=== PATIENT | female | born 1945 | race Caucasian/White ===

== ENCOUNTER 2016-08-15 04:44 | Emergency (ER) | payer OTHER ==
[~2016-08-15] VITALS: Ht 157.5 cm; Wt 102.3 kg
[~2016-08-15 04:44] MED LIST: AMLO5TAB66 PO; ASPI-1093 PO; ATOR20TA86 PO; BUPR100T4 PO; CALC500T62 PO; IBUP-2070 PO; NAPR250T2 PO; TRAZ-147 PO
[2016-08-15 05:02] LABS: GLUCOSE,POINT OF CARE 138 MG/DL (70-110)
[2016-08-15] MEDS ORDERED: MORPHINE SULFATE 4 MG/ML SYRINGE IM ONE (08:15)
[2016-08-15] MEDS ORDERED: ONDANSETRON HCL 4 MG/2 ML VIAL IM ONE (08:15)
[2016-08-15 08:17] LABS: BASOPHILS % (AUTO) 2.2 % (0.0-2.0); EOSINOPHILS % (AUTO) 2.8 % (1.0-6.0); HEMATOCRIT 45.3 % (36-46); HEMOGLOBIN 14.3 g/dL (12.0-16.0); LYMPHOCYTES # (AUTO) 2.2 K/uL (1.0-4.8); LYMPHOCYTES % (AUTO) 22.6 % (22.0-44.0); MEAN CORPUSCULAR HEMOGLOBIN 27.5 pg (26.0-34.0); MEAN CORPUSCULAR HGB CONC 31.6 G/dL (31.0-37.0); MEAN CORPUSCULAR VOLUME 87 fL (80-100); MONOCYTES # (AUTO) 0.7 K/uL (0.1-1.0); MONOCYTES % (AUTO) 7.2 % (2.0-9.0); NEUTROPHILS # (AUTO) 6.4 K/uL (1.8-7.7); NEUTROPHILS % (AUTO) 65.2 % (40.0-70.0); PLATELET COUNT (AUTO) 231 K/uL (150-450); RED BLOOD CELL COUNT(AUTO) 5.22 MIL/uL (4.00-5.20); RED CELL DISTRIBUTION WIDTH 15.5 % (11.5-14.5); WHITE BLOOD COUNT (AUTO) 9.8 K/uL (4.5-11.0)
[2016-08-15 08:54] LABS: CALCIUM, TOTAL 8.8 mg/dL (8.8-10.5); CREATININE 1.01 mg/dL (0.60-1.30); POTASSIUM 3.5 mmol/L (3.5-5.1)
[2016-08-15 09:01] LABS: ALBUMIN 3.7 g/dL (3.4-5.0); BILIRUBIN,TOTAL 0.4 mg/dL (0.1-1.0); TOTAL PROTEIN, SERUM 7.3 g/dL (6.4-8.2)
[2016-08-15] MEDS ORDERED: HYDROmorphone 2 MG/ML SYRINGE IM ONE (09:15)
[2016-08-15 10:19] VITALS: BP 130/69
== END 2016-08-15 10:46 | disposition home or self-care (01) ==
LOC: EMS 04:46
DX: R51 Headache (principal); F32.9 Major depressive disorder, single episode, unspecified; E78.00 Pure hypercholesterolemia, unspecified; I10 Essential (primary) hypertension; E11.9 Type 2 diabetes mellitus without complications; Z79.82 Long term (current) use of aspirin
CPT/HCPCS: 36415; 70450; 80053; 82962; 85025; 93005; 96372; 99285; J1170; J2270; J2405

== ENCOUNTER 2017-03-25 14:47 | Emergency (ER) | payer OTHER ==
[~2017-03-25] VITALS: Ht 162.6 cm; Wt 118.0 kg
[~2017-03-25 14:47] MED LIST changes: -ASPI-1093 PO; +ASPI-1182 PO; -BUPR100T4 PO; -CALC500T62 PO; -IBUP-2070 PO; +NAPR-923 PO; -NAPR250T2 PO; -TRAZ-147 PO
[2017-03-25 15:13] LABS: GLUCOSE,POINT OF CARE 160 MG/DL (70-110)
[2017-03-25] MEDS ORDERED: CITA20TA9 PO (15:17)
[2017-03-25] MEDS ORDERED: BUSP5TAB20 PO (15:17)
[2017-03-25] MEDS ORDERED: RISP.5 PO (15:17)
[2017-03-25] MEDS ORDERED: DULO60CA44 PO (15:17)
[2017-03-25 16:48] LABS: BASOPHILS % (AUTO) 0.4 % (0.0-2.0); EOSINOPHILS % (AUTO) 1.7 % (1.0-6.0); HEMATOCRIT 42.8 % (36-46); HEMOGLOBIN 14.5 g/dL (12.0-16.0); LYMPHOCYTES # (AUTO) 1.4 K/uL (1.0-4.8); LYMPHOCYTES % (AUTO) 21.2 % (22.0-44.0); MEAN CORPUSCULAR HGB CONC 33.8 G/dL (31.0-37.0); MEAN CORPUSCULAR VOLUME 86 fL (80-100); MONOCYTES # (AUTO) 0.5 K/uL (0.1-1.0); MONOCYTES % (AUTO) 7.5 % (2.0-9.0); NEUTROPHILS # (AUTO) 4.7 K/uL (1.8-7.7); NEUTROPHILS % (AUTO) 69.2 % (40.0-70.0); PLATELET COUNT (AUTO) 250 K/uL (150-450); RED BLOOD CELL COUNT(AUTO) 4.99 MIL/uL (4.00-5.20)
[2017-03-25 17:17] LABS: ANION GAP 10 mmol/L (8-16); CALCIUM, TOTAL 8.7 mg/dL (8.8-10.5); CARBON DIOXIDE 28 mmol/L (22-29); CHLORIDE 102 mmol/L (98-107); CREATININE 1.07 mg/dL (0.60-1.30); GLOMERULAR FILTR. RATE CALC 50 mL/min (>60); GLUCOSE,RANDOM 148 mg/dL (70-110); POTASSIUM 3.4 mmol/L (3.5-5.1); SODIUM SERUM 140 mmol/L (136-145); UREA NITROGEN, BLOOD 16 mg/dL (7-18)
[2017-03-25 17:23] LABS: ALANINE AMINOTRANSFERASE 19 U/L (12-78); ALBUMIN 3.2 g/dL (3.4-5.0); ALKALINE PHOSPHATASE 103 U/L (46-116); ASPARTATE AMINOTRANSFERASE 12 U/L (15-37); BILIRUBIN,TOTAL 0.3 mg/dL (0.1-1.0); TOTAL PROTEIN, SERUM 7.2 g/dL (6.4-8.2)
[2017-03-25 17:29] LABS: AMPHET/METH SCREEN,URINE NEGATIVE (NEGATIVE); BARBITURATE SCREEN, URINE NEGATIVE (NEGATIVE); BENZODIAZEPINES SCREEN,URINE NEGATIVE (NEGATIVE); CANNABINOID SCREEN,URINE NEGATIVE (NEGATIVE); COCAINE SCREEN,URINE NEGATIVE (NEGATIVE); METHADONE SCREEN, URINE NEGATIVE (NEGATIVE); OPIATE SCREEN,URINE NEGATIVE (NEGATIVE)
[2017-03-25 17:31] LABS: PHENCYCLIDINE SCREEN,URINE NEGATIVE (NEGATIVE)
[2017-03-25 18:04] VITALS: BP 150/89
== END 2017-03-25 18:06 | disposition home or self-care (01) ==
LOC: EMS 14:48
DX: F32.9 Major depressive disorder, single episode, unspecified (principal); F41.9 Anxiety disorder, unspecified; E11.9 Type 2 diabetes mellitus without complications; E78.00 Pure hypercholesterolemia, unspecified; I10 Essential (primary) hypertension; Z79.82 Long term (current) use of aspirin
CPT/HCPCS: 36415; 80053; 80307; 82962; 85025; 99284; G0480

== ENCOUNTER 2017-04-12 06:43 | Emergency (ER) | payer OTHER ==
[~2017-04-12] VITALS: Ht 162.6 cm; Wt 109.1 kg
[~2017-04-12 06:43] MED LIST changes: +BUSP5TAB20 PO; +CITA20TA9 PO; +DULO60CA44 PO; +RISP.5 PO
[2017-04-12 07:50] LABS: BASOPHILS # (AUTO) 0.02 K/uL (0.00-0.20); BASOPHILS % (AUTO) 0.4 % (0.0-2.0); EOSINOPHILS # (AUTO) 0.03 K/uL (0.00-0.70); EOSINOPHILS % (AUTO) 0.48 % (1.0-6.0); HEMATOCRIT 42.4 % (36-46); LYMPHOCYTES # (AUTO) 0.8 K/uL (1.0-4.8); LYMPHOCYTES % (AUTO) 14.8 % (22.0-44.0); MEAN CORPUSCULAR HEMOGLOBIN 28.4 pg (26.0-34.0); MEAN CORPUSCULAR VOLUME 86 fL (80-100); MONOCYTES # (AUTO) 0.4 K/uL (0.1-1.0); MONOCYTES % (AUTO) 6.2 % (2.0-9.0); NEUTROPHILS # (AUTO) 4.5 K/uL (1.8-7.7); NEUTROPHILS % (AUTO) 78.1 % (40.0-70.0); PLATELET COUNT (AUTO) 182 K/uL (150-450); RED BLOOD CELL COUNT(AUTO) 4.91 MIL/uL (4.00-5.20); RED CELL DISTRIBUTION WIDTH 15.1 % (11.5-14.5)
[2017-04-12 08:00] LABS: PROTHROMBIN TIME 10.5 SEC (9.4-11.6)
[2017-04-12 08:03] LABS: ANION GAP 8 mmol/L (8-16); CALCIUM, TOTAL 8.2 mg/dL (8.8-10.5); CARBON DIOXIDE 29 mmol/L (22-29); CHLORIDE 98 mmol/L (98-107); CREATININE 0.84 mg/dL (0.60-1.30); GLOMERULAR FILTR. RATE CALC > 60 mL/min (>60); GLUCOSE,RANDOM 188 mg/dL (70-110); POTASSIUM 3.4 mmol/L (3.5-5.1); SODIUM SERUM 135 mmol/L (136-145); UREA NITROGEN, BLOOD 16 mg/dL (7-18)
[2017-04-12 08:17] LABS: INFLUENZA TYPE A POSITIVE FOR TYPE A (NEGATIVE); INFLUENZA TYPE B NEGATIVE FOR TYPE B (NEGATIVE)
[2017-04-12 08:17] LABS: B-TYPE NATRIURETIC PEPTIDE 8 pg/mL (0-100)
[2017-04-12] MEDS ORDERED: IPRATROPIUM BROMIDE 0.5 MG/2.5 ML NEB SOLUTION NEB ONE ×2 (08:30→09:45)
[2017-04-12] MEDS ORDERED: ALBUTEROL SULFATE 2.5 MG/0.5 ML NEB SOLUTION NEB ONE ×2 (08:30→09:45)
[2017-04-12 08:33] LABS: ALANINE AMINOTRANSFERASE 26 U/L (12-78); ALBUMIN 3.2 g/dL (3.4-5.0); ALKALINE PHOSPHATASE 103 U/L (46-116); ASPARTATE AMINOTRANSFERASE 23 U/L (15-37); BILIRUBIN,TOTAL 0.3 mg/dL (0.1-1.0); CREATINE KINASE MB 0.9 ng/mL (0-5); CREATINE KINASE, TOTAL 151 U/L (26-192); TOTAL PROTEIN, SERUM 7.5 g/dL (6.4-8.2)
[2017-04-12] MEDS ORDERED: ONDANSETRON HCL 4 MG TABLET PO ONE (09:15)
[2017-04-12] MEDS ORDERED: OSELTAMIVIR PHOSPHATE 75 MG CAPSULE PO ONE (09:30)
[2017-04-12] MEDS ORDERED: ALBUTEROL SULFATE HFA 90 MCG/PUFF 8 GM INHALER IH ONE (13:30)
[2017-04-12] MEDS ORDERED: AMLO-512 PO (13:34)
[2017-04-12] MEDS ORDERED: NAPR-58 PO (13:34)
[2017-04-12 14:04] VITALS: BP 125/72
== END 2017-04-12 14:06 | disposition home or self-care (01) ==
LOC: EMS 06:44
DX: J09.X2 Influenza due to identified novel influenza A virus with other respiratory manifestations (principal); I10 Essential (primary) hypertension; E11.9 Type 2 diabetes mellitus without complications; E78.00 Pure hypercholesterolemia, unspecified
CPT/HCPCS: 36415; 71045; 80053; 82550; 82553; 83880; 84484; 85025; 85610; 85730; 87804; 93005; 94640; 99285; Q0162; J3535

== ENCOUNTER 2017-06-19 02:09 | Emergency (ER) | payer OTHER ==
[~2017-06-19] VITALS: Ht 160 cm; Wt 111.4 kg
[~2017-06-19 02:09] MED LIST changes: +AMLO-512 PO; -AMLO5TAB66 PO; +NAPR-58 PO; -NAPR-923 PO
[2017-06-19] MEDS ORDERED: ACETAMINOPHEN 325 MG TABLET PO ONE (03:30)
[2017-06-19 03:47] LABS: BASOPHILS % (AUTO) 0.7 % (0.0-2.0); EOSINOPHILS % (AUTO) 3.7 % (1.0-6.0); HEMATOCRIT 39.9 % (36-46); HEMOGLOBIN 13.3 g/dL (12.0-16.0); LYMPHOCYTES # (AUTO) 2.2 K/uL (1.0-4.8); LYMPHOCYTES % (AUTO) 21.6 % (22.0-44.0); MEAN CORPUSCULAR HEMOGLOBIN 28.4 pg (26.0-34.0); MEAN CORPUSCULAR HGB CONC 33.4 G/dL (31.0-37.0); MEAN CORPUSCULAR VOLUME 85 fL (80-100); MONOCYTES # (AUTO) 0.9 K/uL (0.1-1.0); MONOCYTES % (AUTO) 8.3 % (2.0-9.0); NEUTROPHILS # (AUTO) 6.8 K/uL (1.8-7.7); NEUTROPHILS % (AUTO) 65.7 % (40.0-70.0); PLATELET COUNT (AUTO) 248 K/uL (150-450); RED BLOOD CELL COUNT(AUTO) 4.68 MIL/uL (4.00-5.20); RED CELL DISTRIBUTION WIDTH 15.5 % (11.5-14.5)
[2017-06-19 03:52] LABS: CALCIUM, TOTAL 9.6 mg/dL (8.8-10.5); CREATININE 1.18 mg/dL (0.60-1.30); POTASSIUM 3.3 mmol/L (3.5-5.1)
[2017-06-19 03:57] LABS: ALBUMIN 3.2 g/dL (3.4-5.0); BILIRUBIN,TOTAL 0.3 mg/dL (0.1-1.0); TOTAL PROTEIN, SERUM 7.3 g/dL (6.4-8.2)
[2017-06-19 06:10] VITALS: BP 143/69
[2017-06-19] MEDS ORDERED: KETOROLAC TROMETHAMINE 30 MG/ML VIAL IM ONE (06:15)
== END 2017-06-19 06:24 | disposition home or self-care (01) ==
LOC: EMS 02:10
DX: N64.4 Mastodynia (principal); E11.9 Type 2 diabetes mellitus without complications; I10 Essential (primary) hypertension; E78.00 Pure hypercholesterolemia, unspecified
CPT/HCPCS: 36415; 71045; 80053; 84484; 85025; 93005; 96372; 99285; J1885

== ENCOUNTER 2018-01-19 13:27 | Emergency (ER) | payer MEDICARE, MEDICAID ==
[~2018-01-19] VITALS: Ht 157.5 cm; Wt 104.5 kg
[~2018-01-19 13:27] MED LIST changes: -ATOR20TA86 PO; +CITA-106 PO; -CITA20TA9 PO; -NAPR-58 PO
[2018-01-19 16:42] LABS: BASOPHILS % (AUTO) 2.5 % (0.0-2.0); EOSINOPHILS % (AUTO) 1.4 % (1.0-6.0); HEMATOCRIT 44.8 % (36-46); HEMOGLOBIN 14.9 g/dL (12.0-16.0); LYMPHOCYTES # (AUTO) 2.2 K/uL (1.0-4.8); LYMPHOCYTES % (AUTO) 18.8 % (22.0-44.0); MEAN CORPUSCULAR HEMOGLOBIN 28.6 pg (26.0-34.0); MEAN CORPUSCULAR HGB CONC 33.2 G/dL (31.0-37.0); MEAN CORPUSCULAR VOLUME 86 fL (80-100); MONOCYTES % (AUTO) 8.1 % (2.0-9.0); NEUTROPHILS # (AUTO) 8.2 K/uL (1.8-7.7); NEUTROPHILS % (AUTO) 69.2 % (40.0-70.0); PLATELET COUNT (AUTO) 296 K/uL (150-450); RED BLOOD CELL COUNT(AUTO) 5.21 MIL/uL (4.00-5.20); RED CELL DISTRIBUTION WIDTH 14.8 % (11.5-14.5)
[2018-01-19 16:50] LABS: ANION GAP 8 mmol/L (8-16); CALCIUM, TOTAL 9.1 mg/dL (8.8-10.5); CARBON DIOXIDE 29 mmol/L (22-29); CHLORIDE 102 mmol/L (98-107); CREATININE 1.19 mg/dL (0.60-1.30); GLOMERULAR FILTR. RATE CALC 44 mL/min (>60); GLUCOSE,RANDOM 116 mg/dL (70-110); POTASSIUM 3.7 mmol/L (3.5-5.1); SODIUM SERUM 139 mmol/L (136-145); UREA NITROGEN, BLOOD 19 mg/dL (7-18)
[2018-01-19 16:56] LABS: ALANINE AMINOTRANSFERASE 20 U/L (12-78); ALBUMIN 3.7 g/dL (3.4-5.0); ALKALINE PHOSPHATASE 125 U/L (46-116); ASPARTATE AMINOTRANSFERASE 11 U/L (15-37); BILIRUBIN,TOTAL 0.6 mg/dL (0.1-1.0); TOTAL PROTEIN, SERUM 8.2 g/dL (6.4-8.2)
[2018-01-19] MEDS ORDERED: LORazepam 2 MG TABLET PO ONE (19:45)
[2018-01-19 21:25] VITALS: BP 122/86
== END 2018-01-19 21:30 | disposition home or self-care (01) ==
LOC: EDUNIT# 13:27 → EMS 13:32
DX: F32.9 Major depressive disorder, single episode, unspecified (principal); F41.9 Anxiety disorder, unspecified; E11.9 Type 2 diabetes mellitus without complications; E78.00 Pure hypercholesterolemia, unspecified; I10 Essential (primary) hypertension; G89.29 Other chronic pain; Z79.82 Long term (current) use of aspirin
CPT/HCPCS: 36415; 80053; 85025; 99284; G0480

== ENCOUNTER 2018-08-05 05:07 | Emergency (ER) | payer MEDICARE, MEDICAID ==
[~2018-08-05] VITALS: Ht 157.5 cm; Wt 109.1 kg
[2018-08-05] MEDS ORDERED: IBUP-2070 PO (05:38)
[2018-08-05] MEDS ORDERED: ATOR20TA86 PO (05:38)
[2018-08-05] MEDS ORDERED: BACL10TA PO (05:38)
[2018-08-05] MEDS ORDERED: MELO-107 PO (05:38)
[2018-08-05] MEDS ORDERED: BUPR100 PO (05:40)
[2018-08-05] MEDS ORDERED: LISI-660 PO (05:40)
[2018-08-05] MEDS ORDERED: CITA-106 PO (05:40)
[2018-08-05] MEDS ORDERED: TraMADol HCL 50 MG TABLET PO ONE (06:30)
[2018-08-05] MEDS ORDERED: LORazepam 1 MG TABLET PO ONE (06:30)
[2018-08-05] MEDS ORDERED: KETOROLAC TROMETHAMINE 60 MG/2 ML VIAL IM ONE (06:30)
[2018-08-05] MEDS ORDERED: MORPHINE SULFATE 2 MG/ML SYRINGE IM ONE (07:45)
[2018-08-05 08:59] VITALS: BP 137/70
== END 2018-08-05 08:57 | disposition home or self-care (01) ==
LOC: EMS 05:09
DX: M54.42 Lumbago with sciatica, left side (principal); M51.36 Other intervertebral disc degeneration, lumbar region; E11.9 Type 2 diabetes mellitus without complications; E78.00 Pure hypercholesterolemia, unspecified; I10 Essential (primary) hypertension; F41.9 Anxiety disorder, unspecified; F32.9 Major depressive disorder, single episode, unspecified; Z79.82 Long term (current) use of aspirin; Z79.899 Other long term (current) drug therapy
CPT/HCPCS: 72131; 96372; 99284; J1885; J2270

== ENCOUNTER 2018-08-30 23:41 | Emergency (ER) | payer MEDICARE, MEDICAID ==
[~2018-08-30 23:41] MED LIST changes: +ATOR20TA86 PO; +BACL10TA PO; +BUPR100 PO; +IBUP-2070 PO; +LISI-660 PO; +MELO-107 PO
[2018-08-31] MEDS ORDERED: HYDROCODONE/ACETAMINOPHEN 5-325 MG TABLET PO ONE (00:45)
[2018-08-31 00:53] VITALS: BP 123/66
== END 2018-08-31 02:05 | disposition home or self-care (01) ==
LOC: EMS 23:41
DX: T50.901A Poisoning by unspecified drugs, medicaments and biological substances, accidental (unintentional), initial encounter (principal); M54.5 Low back pain; F41.9 Anxiety disorder, unspecified; F32.9 Major depressive disorder, single episode, unspecified; E11.9 Type 2 diabetes mellitus without complications; E78.00 Pure hypercholesterolemia, unspecified; Z79.82 Long term (current) use of aspirin; Z79.899 Other long term (current) drug therapy; I10 Essential (primary) hypertension; Y92.89 Other specified places as the place of occurrence of the external cause

== ENCOUNTER 2018-10-19 16:57 | Emergency (ER) | payer MEDICARE, MEDICAID ==
[~2018-10-19] VITALS: Ht 157.5 cm; Wt 99.1 kg
[~2018-10-19 16:57] MED LIST changes: -AMLO-512 PO; +AMLO10TA7 PO
[2018-10-19] MEDS ORDERED: MIRT15 PO (17:33)
[2018-10-19] MEDS ORDERED: HydrOXYzine PAMOATE 50 MG CAPSULE PO ONE (18:00)
[2018-10-19 18:26] LABS: GLUCOSE,POINT OF CARE 147 MG/DL (70-110)
[2018-10-19 18:48] VITALS: BP 118/77
== END 2018-10-19 18:59 | disposition home or self-care (01) ==
LOC: EMS 16:58
DX: F32.9 Major depressive disorder, single episode, unspecified (principal); F41.9 Anxiety disorder, unspecified; E11.9 Type 2 diabetes mellitus without complications; I10 Essential (primary) hypertension; E78.00 Pure hypercholesterolemia, unspecified; G89.29 Other chronic pain; Z79.82 Long term (current) use of aspirin

== ENCOUNTER 2019-11-09 20:11 | Emergency (ER) | payer OTHER ==
[~2019-11-09 20:11] MED LIST changes: +AMLO-258 PO; -AMLO10TA7 PO; +ASPI-1111 PO; -ASPI-1182 PO; -CITA-106 PO; +CITA-144 PO; -DULO60CA44 PO; -IBUP-2070 PO; -LISI-660 PO; +MIRT-89 PO; -RISP.5 PO; +RISP0.5T20 PO
== END 2019-11-09 21:53 | disposition left against medical advice (07) ==
LOC: EMS 20:11
DX: R06.02 Shortness of breath (principal); Z53.21 Procedure and treatment not carried out due to patient leaving prior to being seen by health care provider

== ENCOUNTER 2020-01-14 16:30 | Emergency (ER) | payer OTHER ==
[~2020-01-14] VITALS: Ht 157.5 cm; Wt 113.6 kg
[~2020-01-14 16:30] MED LIST changes: +BUPR-121 PO; -BUPR100 PO; -RISP0.5T20 PO; +RISP0.5T39 PO
[2020-01-14 17:39] LABS: GLUCOSE,POINT OF CARE 133 MG/DL (70-110)
[2020-01-14 17:53] LABS: BASOPHILS % (AUTO) 1.5 % (0.0-2.0); EOSINOPHILS % (AUTO) 0.3 % (1.0-6.0); HEMATOCRIT 39.3 % (36-46); HEMOGLOBIN 13.4 g/dL (12.0-16.0); LYMPHOCYTES # (AUTO) 1.3 K/uL (1.0-4.8); LYMPHOCYTES % (AUTO) 19.6 % (22.0-44.0); MEAN CORPUSCULAR VOLUME 88 fL (80-100); MONOCYTES # (AUTO) 0.5 K/uL (0.1-1.0); MONOCYTES % (AUTO) 7.7 % (2.0-9.0); NEUTROPHILS # (AUTO) 4.6 K/uL (1.8-7.7); NEUTROPHILS % (AUTO) 70.9 % (40.0-70.0); PLATELET COUNT (AUTO) 223 K/uL (150-450); RED BLOOD CELL COUNT(AUTO) 4.45 MIL/uL (4.00-5.20); RED CELL DISTRIBUTION WIDTH 14.9 % (11.5-14.5)
[2020-01-14] MEDS ORDERED: ONDANSETRON HCL 4 MG/2 ML VIAL IVP ONE (18:00)
[2020-01-14] MEDS ORDERED: FAMOTIDINE 10 MG/ML 2 ML VIAL IVP ONE (18:00)
[2020-01-14 18:05] LABS: ANION GAP 7 mmol/L (8-16); CALCIUM, TOTAL 9.6 mg/dL (8.8-10.5); CARBON DIOXIDE 31 mmol/L (22-29); CHLORIDE 107 mmol/L (98-107); CREATININE 0.83 mg/dL (0.60-1.30); GLOMERULAR FILTR. RATE CALC > 60 mL/min (>60); GLUCOSE,RANDOM 135 mg/dL (70-110); POTASSIUM 3.4 mmol/L (3.5-5.1); SODIUM SERUM 145 mmol/L (136-145); UREA NITROGEN, BLOOD 13 mg/dL (7-18)
[2020-01-14 18:10] LABS: ALANINE AMINOTRANSFERASE 19 U/L (12-78); ALKALINE PHOSPHATASE 69 U/L (46-116); ASPARTATE AMINOTRANSFERASE 16 U/L (15-37); BILIRUBIN,TOTAL 0.4 mg/dL (0.1-1.0); LIPASE 214 U/L (73-393); PROTHROMBIN TIME 10.9 SEC (9.4-11.6); TOTAL PROTEIN, SERUM 6.7 g/dL (6.4-8.2)
[2020-01-14 18:18] LABS: B-TYPE NATRIURETIC PEPTIDE 162 pg/mL (0-100)
[2020-01-14] MEDS ORDERED: METOCLOPRAMIDE HCL 5 MG/ML 2 ML VIAL IVP ONE (18:30)
[2020-01-14 18:39] LABS: COVID AG,FIA SOURCE NASOPHARYNGEAL
[2020-01-14] MEDS ORDERED: IOVERSOL 350 MG/ML 150 ML VIAL ONE (20:34)
[2020-01-14] MEDS ORDERED: SODIUM CHLORIDE 0.9% 100 ML ONE (20:34)
[2020-01-14 22:17] VITALS: BP 156/85
== END 2020-01-14 22:20 | disposition home or self-care (01) ==
LOC: EMS 16:30
DX: R11.2 Nausea with vomiting, unspecified (principal); R19.7 Diarrhea, unspecified; R79.1 Abnormal coagulation profile; F32.9 Major depressive disorder, single episode, unspecified; F41.9 Anxiety disorder, unspecified; E11.9 Type 2 diabetes mellitus without complications; E78.00 Pure hypercholesterolemia, unspecified; I10 Essential (primary) hypertension; Z90.49 Acquired absence of other specified parts of digestive tract; Z79.899 Other long term (current) drug therapy; Z20.828 Contact with and (suspected) exposure to other viral communicable diseases
CPT/HCPCS: 36415; 71045; 74177; 80053; 82962; 83690; 83880; 84484; 85025; 85610; 85730; 87426; 93005; 96374; 96375; 99285; J2405; J2765; J3490; J7050; Q9967

== ENCOUNTER 2020-04-18 14:15 | Emergency (ER) | payer OTHER ==
[~2020-04-18] VITALS: Ht 157.5 cm; Wt 95.5 kg
[2020-04-18] MEDS ORDERED: [UNRECOGNIZED DRUG - REMARK] PO (14:53)
[2020-04-18 15:44] LABS: BASOPHILS % (AUTO) 0.8 % (0.0-2.0); EOSINOPHILS % (AUTO) 1.1 % (1.0-6.0); HEMATOCRIT 42.1 % (36-46); HEMOGLOBIN 13.9 g/dL (12.0-16.0); LYMPHOCYTES # (AUTO) 1.6 K/uL (1.0-4.8); LYMPHOCYTES % (AUTO) 21.4 % (22.0-44.0); MEAN CORPUSCULAR HEMOGLOBIN 29.4 pg (26.0-34.0); MEAN CORPUSCULAR VOLUME 89 fL (80-100); MONOCYTES # (AUTO) 0.5 K/uL (0.1-1.0); MONOCYTES % (AUTO) 6.2 % (2.0-9.0); NEUTROPHILS # (AUTO) 5.3 K/uL (1.8-7.7); NEUTROPHILS % (AUTO) 70.5 % (40.0-70.0); PLATELET COUNT (AUTO) 207 K/uL (150-450); RED BLOOD CELL COUNT(AUTO) 4.73 MIL/uL (4.00-5.20); RED CELL DISTRIBUTION WIDTH 14.2 % (11.5-14.5)
[2020-04-18 16:00] LABS: ANION GAP 8 mmol/L (8-16); CALCIUM, TOTAL 9.5 mg/dL (8.8-10.5); CARBON DIOXIDE 30 mmol/L (22-29); CHLORIDE 109 mmol/L (98-107); CREATININE 0.84 mg/dL (0.60-1.30); GLOMERULAR FILTR. RATE CALC > 60 mL/min (>60); GLUCOSE,RANDOM 133 mg/dL (70-110); POTASSIUM 4.2 mmol/L (3.5-5.1); SODIUM SERUM 147 mmol/L (136-145); UREA NITROGEN, BLOOD 9 mg/dL (7-18)
[2020-04-18 16:05] LABS: ALANINE AMINOTRANSFERASE 18 U/L (12-78); ALBUMIN 3.1 g/dL (3.4-5.0); ALKALINE PHOSPHATASE 83 U/L (46-116); ASPARTATE AMINOTRANSFERASE 12 U/L (15-37); BILIRUBIN,TOTAL 0.4 mg/dL (0.1-1.0); LIPASE 69 U/L (73-393); TOTAL PROTEIN, SERUM 6.5 g/dL (6.4-8.2)
[2020-04-18] MEDS: ONDANSETRON HCL 4 MG/2 ML VIAL IVP ONE (16:49)
[2020-04-18 18:14] VITALS: BP 159/91
== END 2020-04-18 18:49 | disposition home or self-care (01) ==
LOC: EMS 14:15
DX: R11.2 Nausea with vomiting, unspecified (principal); R19.7 Diarrhea, unspecified; F41.9 Anxiety disorder, unspecified; F32.9 Major depressive disorder, single episode, unspecified; E11.9 Type 2 diabetes mellitus without complications; E78.00 Pure hypercholesterolemia, unspecified
CPT/HCPCS: 80053; 83690; 85025; 96374; 99283; J2405

== ENCOUNTER 2020-12-16 20:26 | Inpatient (IN) | payer OTHER ==
[~2020-12-16] VITALS: Ht 157.5 cm; Wt 109.6 kg
[~2020-12-16 20:26] MED LIST changes: -ASPI-1111 PO; -BACL10TA PO; +[UNRECOGNIZED DRUG - REMARK] PO
[2020-12-16 21:31] LABS: BASOPHILS % (AUTO) 0.4 % (0.0-2.0); EOSINOPHILS % (AUTO) 4.1 % (1.0-6.0); HEMATOCRIT 39.4 % (36-46); HEMOGLOBIN 12.8 g/dL (12.0-16.0); LYMPHOCYTES # (AUTO) 1.1 K/uL (1.0-4.8); LYMPHOCYTES % (AUTO) 16.3 % (22.0-44.0); MEAN CORPUSCULAR HEMOGLOBIN 29.4 pg (26.0-34.0); MEAN CORPUSCULAR HGB CONC 32.4 G/dL (31.0-37.0); MEAN CORPUSCULAR VOLUME 91 fL (80-100); MONOCYTES # (AUTO) 0.7 K/uL (0.1-1.0); MONOCYTES % (AUTO) 9.6 % (2.0-9.0); NEUTROPHILS # (AUTO) 4.9 K/uL (1.8-7.7); NEUTROPHILS % (AUTO) 69.6 % (40.0-70.0); PLATELET COUNT (AUTO) 364 K/uL (150-450); RED BLOOD CELL COUNT(AUTO) 4.35 MIL/uL (4.00-5.20); RED CELL DISTRIBUTION WIDTH 15.3 % (11.5-14.5)
[2020-12-16 21:52] LABS: CALCIUM, TOTAL 9.3 mg/dL (8.8-10.5); CREATININE 1.04 mg/dL (0.60-1.30); POTASSIUM 4.1 mmol/L (3.5-5.1)
[2020-12-16 21:57] LABS: BILIRUBIN,TOTAL 0.3 mg/dL (0.1-1.0); TOTAL PROTEIN, SERUM 7.6 g/dL (6.4-8.2)
[2020-12-16 23:19] LABS: COVID AG,FIA SOURCE NASAL SWAB
[2020-12-17] MEDS ORDERED: ACETAMINOPHEN 325 MG TABLET PO PRN ×2 (03:30→08:00)
[2020-12-17] MEDS ORDERED: ALBUTEROL SULFATE 2.5 MG/0.5 ML NEB SOLUTION NEB ONE (03:30)
[2020-12-17] MEDS ORDERED: ONDANSETRON HCL 4 MG/2 ML VIAL IVP PRN ×2 (03:30→08:00)
[2020-12-17] MEDS ORDERED: 0.9% SODIUM CHLORIDE 10 ML SYRINGE IVP PRN (03:30)
[2020-12-17] MEDS ORDERED: 0.9% SODIUM CHLORIDE 5 ML NEB SOLUTION NEB ONE (04:52)
[2020-12-17 06:53] VITALS: BP 139/62
[2020-12-17 07:32] VITALS: BP 136/66
[2020-12-17] MEDS ORDERED: MAGNESIUM HYDROXIDE SUSPENSION 30 ML UDCUP PO PRN (08:00)
[2020-12-17] MEDS: HEPARIN SODIUM,PORCINE 5,000 UNITS/ML VIAL SQ SCH ×2 (08:29→15:22)
[2020-12-17] MEDS ORDERED: FAMOTIDINE 20 MG TABLET PO SCH (09:00)
[2020-12-17] MEDS ORDERED: ASPIRIN 81 MG CHEWABLE TABLET PO SCH (09:00)
[2020-12-17 12:01] VITALS: BP 152/69
[2020-12-17 16:06] VITALS: BP 148/72
== END 2020-12-17 17:30 | disposition left against medical advice (07) | DRG 312 ==
LOC: EMS 20:29 → 5S 12-17 04:00
PROVIDERS: ADMIT Internal Medicine; ATTEND Internal Medicine
DX: I95.1 Orthostatic hypotension (principal); Z68.41 Body mass index [BMI] 40.0-44.9, adult; E66.01 Morbid (severe) obesity due to excess calories; I10 Essential (primary) hypertension; F32.A Depression, unspecified; F41.9 Anxiety disorder, unspecified; Z53.29 Procedure and treatment not carried out because of patient's decision for other reasons; R09.02 Hypoxemia; F99 Mental disorder, not otherwise specified; E78.00 Pure hypercholesterolemia, unspecified; Z90.49 Acquired absence of other specified parts of digestive tract; Z83.3 Family history of diabetes mellitus; Z80.9 Family history of malignant neoplasm, unspecified; Z20.822 Contact with and (suspected) exposure to COVID-19
CPT/HCPCS: 70450; 71045; 80053; 83880; 84443; 84484; 85025; 85379; 93005; 93306; 93970; 94640; 99291; J1644; 36415-L1; 36415-TC; J7613

== ENCOUNTER 2021-01-04 15:41 | Inpatient (IN) | payer OTHER ==
[~2021-01-04] VITALS: Ht 157.5 cm; Wt 113.0 kg
[2021-01-04] MEDS ORDERED: CITA-108 PO (16:14)
[2021-01-04] MEDS ORDERED: MIRT45TA83 PO (16:14)
[2021-01-04] MEDS ORDERED: ALBU8.5H8 IH (16:14)
[2021-01-04] MEDS ORDERED: RISP0.2515 PO (16:14)
[2021-01-04] MEDS ORDERED: BUPR200T3 PO (16:14)
[2021-01-04] MEDS ORDERED: LISI30TA4 PO (16:14)
[2021-01-04] MEDS ORDERED: CALC-789 PO (16:14)
[2021-01-04] MEDS ORDERED: BUSP10TA23 PO (16:14)
[2021-01-04] MEDS ORDERED: PROP10TA72 PO (16:14)
[2021-01-04] MEDS ORDERED: GABA-1181 PO (16:14)
[2021-01-04] MEDS ORDERED: FAMO20TA8 PO (16:14)
[2021-01-04] MEDS ORDERED: ALBUTEROL SULFATE 5 MG/ML 20 ML NEB SOLN [BULK] NEB ONE (16:15)
[2021-01-04] MEDS ORDERED: IPRATROPIUM BROMIDE 0.5 MG/2.5 ML NEB SOLUTION NEB ONE (16:15)
[2021-01-04] MEDS ORDERED: MethylPREDNISolone SOD SUCC 125 MG/2 ML VIAL IVP ONE (16:15)
[2021-01-04 16:34] LABS: BASOPHILS % (AUTO) 1.3 % (0.0-2.0); EOSINOPHILS % (AUTO) 7.6 % (1.0-6.0); HEMATOCRIT 38.4 % (36-46); HEMOGLOBIN 12.4 g/dL (12.0-16.0); LYMPHOCYTES # (AUTO) 1.6 K/uL (1.0-4.8); MEAN CORPUSCULAR HEMOGLOBIN 29.5 pg (26.0-34.0); MEAN CORPUSCULAR HGB CONC 32.3 G/dL (31.0-37.0); MEAN CORPUSCULAR VOLUME 91 fL (80-100); MONOCYTES # (AUTO) 0.8 K/uL (0.1-1.0); MONOCYTES % (AUTO) 9.2 % (2.0-9.0); NEUTROPHILS # (AUTO) 5.1 K/uL (1.8-7.7); NEUTROPHILS % (AUTO) 61.9 % (40.0-70.0); PLATELET COUNT (AUTO) 229 K/uL (150-450); RED BLOOD CELL COUNT(AUTO) 4.21 MIL/uL (4.00-5.20); RED CELL DISTRIBUTION WIDTH 15.9 % (11.5-14.5)
[2021-01-04 16:42] LABS: CALCIUM, TOTAL 9.2 mg/dL (8.8-10.5); CREATININE 0.93 mg/dL (0.60-1.30); POTASSIUM 4.1 mmol/L (3.5-5.1)
[2021-01-04 17:58] LABS: COVID AG,FIA SOURCE NASOPHARYNGEAL
[2021-01-04] MEDS ORDERED: ACETAMINOPHEN 325 MG TABLET PO PRN (19:15)
[2021-01-04] MEDS ORDERED: ONDANSETRON HCL 4 MG/2 ML VIAL IVP PRN (19:15)
[2021-01-04] MEDS ORDERED: ALBUTEROL SULFATE HFA 90 MCG/PUFF 8 GM INHALER IH PRN (20:00)
[2021-01-04] MEDS ORDERED: IPRATROPIUM BROMIDE HFA 17 MCG/PUFF 12.9 GM INHALER IH PRN (20:00)
[2021-01-04] MEDS: FAMOTIDINE 20 MG TABLET PO SCH (20:18)
[2021-01-04] MEDS ORDERED: SODIUM CHLORIDE 0.9% 100 ML ONE (22:00)
[2021-01-04] MEDS ORDERED: IOHEXOL 350 MG/ML 100 ML VIAL ONE (22:00)
[2021-01-04] MEDS: BusPIRone HCL 10 MG TABLET PO SCH (22:30)
[2021-01-04] MEDS: GABAPENTIN 300 MG CAPSULE PO SCH (22:31)
[2021-01-04] MEDS: CALCIUM OYSTER SHELL 250 MG-VIT D3 125 UNITS TABLET PO SCH (22:39)
[2021-01-04] MEDS: MIRTAZAPINE 15 MG TABLET PO SCH (22:40)
[2021-01-04] MEDS: BuPROPion HCL 100 MG SR TABLET PO SCH (22:40)
[2021-01-04] MEDS: ALBUTEROL SULFATE 2.5 MG/0.5 ML NEB SOLUTION NEB SCH (23:00)
[2021-01-04] MEDS: IPRATROPIUM BROMIDE 0.5 MG/2.5 ML NEB SOLUTION NEB SCH (23:00)
[2021-01-05] MEDS ORDERED: ENOXAPARIN SODIUM 60 MG/0.6 ML PF SYRINGE SQ ONE (01:45)
[2021-01-05] MEDS: IPRATROPIUM BROMIDE 0.5 MG/2.5 ML NEB SOLUTION NEB SCH ×2 (04:11→07:16)
[2021-01-05] MEDS: ALBUTEROL SULFATE 2.5 MG/0.5 ML NEB SOLUTION NEB SCH ×2 (04:11→07:16)
[2021-01-05] MEDS ORDERED: 0.9% SODIUM CHLORIDE 5 ML NEB SOLUTION NEB ONE ×2 (08:18→18:00)
[2021-01-05] MEDS: ALBUTEROL SULFATE 2.5 MG/0.5 ML NEB SOLUTION NEB PRN ×2 (08:26→18:05)
[2021-01-05] MEDS ORDERED: MethylPREDNISolone SOD SUCC 125 MG/2 ML VIAL IVP SCH (09:00)
[2021-01-05 09:02] LABS: BASOPHILS % (AUTO) 0.9 % (0.0-2.0); EOSINOPHILS % (AUTO) 0 % (1.0-6.0); HEMATOCRIT 35.5 % (36-46); HEMOGLOBIN 11.5 g/dL (12.0-16.0); LYMPHOCYTES # (AUTO) 1.3 K/uL (1.0-4.8); LYMPHOCYTES % (AUTO) 13.7 % (22.0-44.0); MEAN CORPUSCULAR HEMOGLOBIN 29.6 pg (26.0-34.0); MEAN CORPUSCULAR HGB CONC 32.5 G/dL (31.0-37.0); MEAN CORPUSCULAR VOLUME 91 fL (80-100); MONOCYTES # (AUTO) 0.4 K/uL (0.1-1.0); MONOCYTES % (AUTO) 4.6 % (2.0-9.0); NEUTROPHILS # (AUTO) 7.4 K/uL (1.8-7.7); NEUTROPHILS % (AUTO) 80.8 % (40.0-70.0); PLATELET COUNT (AUTO) 220 K/uL (150-450); RED BLOOD CELL COUNT(AUTO) 3.89 MIL/uL (4.00-5.20); RED CELL DISTRIBUTION WIDTH 15.6 % (11.5-14.5)
[2021-01-05 09:06] LABS: CREATININE 1.03 mg/dL (0.60-1.30); POTASSIUM 4.6 mmol/L (3.5-5.1)
[2021-01-05 09:08] LABS: PROTHROMBIN TIME 10.4 SEC (9.4-11.6)
[2021-01-05 09:25] VITALS: BP 143/73
[2021-01-05 11:38] VITALS: BP 167/97
[2021-01-05] MEDS: GABAPENTIN 300 MG CAPSULE PO SCH ×3 (12:50→19:42)
[2021-01-05] MEDS: ATORVASTATIN CALCIUM 20 MG TABLET PO SCH (12:50)
[2021-01-05] MEDS: AmLODIPine BESYLATE 10 MG TABLET PO SCH (12:50)
[2021-01-05] MEDS: FAMOTIDINE 20 MG TABLET PO SCH ×2 (12:51→19:42)
[2021-01-05] MEDS: CALCIUM OYSTER SHELL 250 MG-VIT D3 125 UNITS TABLET PO SCH ×2 (12:51→19:42)
[2021-01-05] MEDS: CITALOPRAM HYDROBROMIDE 20 MG TABLET PO SCH (12:51)
[2021-01-05] MEDS: LISINOPRIL 10 MG TABLET PO SCH (12:52)
[2021-01-05] MEDS: BuPROPion HCL 100 MG SR TABLET PO SCH ×2 (12:52→19:42)
[2021-01-05] MEDS: BusPIRone HCL 10 MG TABLET PO SCH ×3 (12:52→19:42)
[2021-01-05] MEDS: ENOXAPARIN SODIUM 60 MG/0.6 ML PF SYRINGE SQ SCH ×2 (12:54→20:10)
[2021-01-05] MEDS ORDERED: PNEUMOCOCCAL VACCINE POLYVALENT 0.5 ML VIAL [PPSV23] IM. ONE (15:00)
[2021-01-05] MEDS ORDERED: INFLUENZA VIRUS VACCINE QVS 2021-22 (6MO+)/PF 60 MCG/0.5 ML SYRINGE IM. ONE (15:00)
[2021-01-05 15:31] VITALS: BP 139/80
[2021-01-05] MEDS ORDERED: ACETAMINOPHEN 325 MG TABLET PO PRN (16:45)
[2021-01-05] MEDS ORDERED: MORPHINE SULFATE 2 MG/ML SYRINGE IVP PRN (16:45)
[2021-01-05] MEDS: HYDROCODONE/ACETAMINOPHEN 5-325 MG TABLET PO PRN (17:41)
[2021-01-05 19:42] VITALS: BP 142/76
[2021-01-05] MEDS: MIRTAZAPINE 15 MG TABLET PO SCH (20:09)
[2021-01-06] VITALS (7 sets, daily range): BP systolic 138–156; BP diastolic 68–82
[2021-01-06] MEDS: BusPIRone HCL 10 MG TABLET PO SCH ×3 (08:21→20:34)
[2021-01-06] MEDS: CITALOPRAM HYDROBROMIDE 20 MG TABLET PO SCH (08:21)
[2021-01-06] MEDS: GABAPENTIN 300 MG CAPSULE PO SCH ×3 (08:22→20:33)
[2021-01-06] MEDS: FAMOTIDINE 20 MG TABLET PO SCH ×2 (08:22→20:34)
[2021-01-06] MEDS: AmLODIPine BESYLATE 10 MG TABLET PO SCH (08:22)
[2021-01-06] MEDS: BuPROPion HCL 100 MG SR TABLET PO SCH ×2 (08:22→20:33)
[2021-01-06] MEDS: CALCIUM OYSTER SHELL 250 MG-VIT D3 125 UNITS TABLET PO SCH ×2 (08:22→20:34)
[2021-01-06] MEDS: ATORVASTATIN CALCIUM 20 MG TABLET PO SCH (08:22)
[2021-01-06] MEDS: LISINOPRIL 10 MG TABLET PO SCH (08:22)
[2021-01-06] MEDS: HYDROCODONE/ACETAMINOPHEN 5-325 MG TABLET PO PRN ×2 (08:26→16:02)
[2021-01-06] MEDS: PredniSONE 20 MG TABLET PO SCH (08:32)
[2021-01-06] MEDS: APIXABAN 5 MG TABLET PO SCH ×2 (08:32→20:34)
[2021-01-06] MEDS: ALBUTEROL SULFATE 2.5 MG/0.5 ML NEB SOLUTION NEB PRN (08:59)
[2021-01-06] MEDS ORDERED: PredniSONE 20 MG TABLET PO SCH (09:00)
[2021-01-06] MEDS: MIRTAZAPINE 15 MG TABLET PO SCH (20:34)
[2021-01-07 04:38] VITALS: BP 159/78
[2021-01-07] MEDS: HYDROCODONE/ACETAMINOPHEN 5-325 MG TABLET PO PRN (06:45)
[2021-01-07 07:13] VITALS: BP 149/79
[2021-01-07] MEDS: CITALOPRAM HYDROBROMIDE 20 MG TABLET PO SCH (08:40)
[2021-01-07] MEDS: GABAPENTIN 300 MG CAPSULE PO SCH (08:40)
[2021-01-07] MEDS: APIXABAN 5 MG TABLET PO SCH (08:40)
[2021-01-07] MEDS: BuPROPion HCL 100 MG SR TABLET PO SCH (08:41)
[2021-01-07] MEDS: AmLODIPine BESYLATE 10 MG TABLET PO SCH (08:41)
[2021-01-07] MEDS: ATORVASTATIN CALCIUM 20 MG TABLET PO SCH (08:41)
[2021-01-07] MEDS: CALCIUM OYSTER SHELL 250 MG-VIT D3 125 UNITS TABLET PO SCH (08:41)
[2021-01-07] MEDS: BusPIRone HCL 10 MG TABLET PO SCH (08:41)
[2021-01-07] MEDS: FAMOTIDINE 20 MG TABLET PO SCH (08:41)
[2021-01-07] MEDS: PredniSONE 20 MG TABLET PO SCH (08:42)
[2021-01-07] MEDS: LISINOPRIL 10 MG TABLET PO SCH (08:42)
[2021-01-07] MEDS ORDERED: APIX5TAB PO (10:38)
[2021-01-07] MEDS ORDERED: PRED20 PO (10:41)
== END 2021-01-07 11:10 | disposition home or self-care (01) | DRG 202 ==
LOC: EMS 15:52 → ICU 01-05 05:24 → 5S 01-05 05:25
PROVIDERS: ADMIT Internal Medicine; ATTEND Internal Medicine
DX: J45.901 Unspecified asthma with (acute) exacerbation (principal); I26.99 Other pulmonary embolism without acute cor pulmonale; E44.0 Moderate protein-calorie malnutrition; Z68.42 Body mass index [BMI] 45.0-49.9, adult; K76.6 Portal hypertension; M54.30 Sciatica, unspecified side; F32.A Depression, unspecified; F41.9 Anxiety disorder, unspecified; K74.60 Unspecified cirrhosis of liver; Z20.822 Contact with and (suspected) exposure to COVID-19; R09.02 Hypoxemia; F99 Mental disorder, not otherwise specified; E78.5 Hyperlipidemia, unspecified; E78.00 Pure hypercholesterolemia, unspecified; I10 Essential (primary) hypertension; E66.01 Morbid (severe) obesity due to excess calories; R73.03 Prediabetes; Z74.01 Bed confinement status; Z86.16 Personal history of COVID-19; Z83.3 Family history of diabetes mellitus; Z79.899 Other long term (current) drug therapy; Z90.49 Acquired absence of other specified parts of digestive tract; Z80.9 Family history of malignant neoplasm, unspecified; Z71.3 Dietary counseling and surveillance
CPT/HCPCS: 71045; 71275; 80048; 83036; 83880; 84484; 85025; 85379; 85610; 93005; 93306; 93970; 94640; 94644; 97163; 99285; J1650; J2930; J3535; J7050; Q9967; 36415-L1; 36415-TC; J7613

== ENCOUNTER 2021-03-31 06:21 | Emergency (ER) | payer OTHER ==
[~2021-03-31] VITALS: Ht 157.5 cm; Wt 118.2 kg
[~2021-03-31 06:21] MED LIST changes: +ALBU8.5H8 IH; +APIX5TAB PO; -BUPR-121 PO; +BUPR200T3 PO; +BUSP10TA23 PO; -BUSP5TAB20 PO; +CALC-789 PO; -CITA-144 PO; +FAMO20TA8 PO; +GABA-1181 PO; +LISI30TA4 PO; -MIRT-89 PO; +MIRT45TA83 PO; +PRED20 PO; -RISP0.5T39 PO; -[UNRECOGNIZED DRUG - REMARK] PO
[2021-03-31 06:50] LABS: BASOPHILS % (AUTO) 0.2 % (0.0-2.0); EOSINOPHILS % (AUTO) 1.3 % (1.0-6.0); HEMATOCRIT 39.9 % (36-46); HEMOGLOBIN 13.1 g/dL (12.0-16.0); LYMPHOCYTES # (AUTO) 3.3 K/uL (1.0-4.8); LYMPHOCYTES % (AUTO) 30.3 % (22.0-44.0); MEAN CORPUSCULAR HEMOGLOBIN 29.2 pg (26.0-34.0); MEAN CORPUSCULAR HGB CONC 32.8 G/dL (31.0-37.0); MEAN CORPUSCULAR VOLUME 89 fL (80-100); MONOCYTES % (AUTO) 9.6 % (2.0-9.0); NEUTROPHILS # (AUTO) 6.4 K/uL (1.8-7.7); NEUTROPHILS % (AUTO) 58.6 % (40.0-70.0); PLATELET COUNT (AUTO) 257 K/uL (150-450); RED BLOOD CELL COUNT(AUTO) 4.49 MIL/uL (4.00-5.20); RED CELL DISTRIBUTION WIDTH 14.6 % (11.5-14.5)
[2021-03-31 07:02] LABS: CALCIUM, TOTAL 9.2 mg/dL (8.8-10.5); CREATININE 1.28 mg/dL (0.60-1.30); POTASSIUM 4.2 mmol/L (3.5-5.1)
[2021-03-31 07:05] LABS: PROTHROMBIN TIME 10.3 SEC (9.4-11.6)
[2021-03-31 07:07] LABS: ALBUMIN 3.2 g/dL (3.4-5.0); BILIRUBIN,TOTAL 0.2 mg/dL (0.1-1.0); TOTAL PROTEIN, SERUM 6.8 g/dL (6.4-8.2)
[2021-03-31] MEDS ORDERED: IBUPROFEN 600 MG TABLET PO ONE (07:30)
[2021-03-31 10:38] VITALS: BP 129/79
== END 2021-03-31 11:26 | disposition home or self-care (01) ==
LOC: EMS 06:23
DX: R07.1 Chest pain on breathing (principal); J45.909 Unspecified asthma, uncomplicated; F41.9 Anxiety disorder, unspecified; F32.9 Major depressive disorder, single episode, unspecified; E11.9 Type 2 diabetes mellitus without complications; E78.00 Pure hypercholesterolemia, unspecified; Z90.89 Acquired absence of other organs; Z79.899 Other long term (current) drug therapy
CPT/HCPCS: 71045; 80053; 83880; 84484; 85025; 85610; 85730; 93005; 99285; 36415-L1; 36415-TC

== ENCOUNTER 2021-07-21 15:12 | Emergency (ER) | payer OTHER ==
[~2021-07-21] VITALS: Ht 157.5 cm; Wt 109.9 kg
[~2021-07-21 15:12] MED LIST changes: -BUPR200T3 PO; +BUPR200T8 PO; +PRED-554 PO; -PRED20 PO
[2021-07-21] MEDS ORDERED: ONDANSETRON HCL 4 MG/2 ML VIAL IVP ONE (16:45)
[2021-07-21 17:25] LABS: EOSINOPHILS % (AUTO) 0.2 % (1.0-6.0); HEMATOCRIT 38.8 % (36-46); HEMOGLOBIN 12.9 g/dL (12.0-16.0); LYMPHOCYTES # (AUTO) 1.4 K/uL (1.0-4.8); MEAN CORPUSCULAR HEMOGLOBIN 29.2 pg (26.0-34.0); MEAN CORPUSCULAR HGB CONC 33.4 G/dL (31.0-37.0); MEAN CORPUSCULAR VOLUME 87 fL (80-100); MONOCYTES # (AUTO) 0.5 K/uL (0.1-1.0); MONOCYTES % (AUTO) 7.2 % (2.0-9.0); NEUTROPHILS # (AUTO) 4.9 K/uL (1.8-7.7); NEUTROPHILS % (AUTO) 71.6 % (40.0-70.0); PLATELET COUNT (AUTO) 193 K/uL (150-450); RED BLOOD CELL COUNT(AUTO) 4.43 MIL/uL (4.00-5.20); RED CELL DISTRIBUTION WIDTH 14.5 % (11.5-14.5)
[2021-07-21 17:34] LABS: ANION GAP 10 mmol/L (8-16); CALCIUM, TOTAL 9.4 mg/dL (8.8-10.5); CARBON DIOXIDE 28 mmol/L (22-29); CHLORIDE 103 mmol/L (98-107); CREATININE 0.82 mg/dL (0.60-1.30); GLUCOSE,RANDOM 123 mg/dL (70-110); SODIUM SERUM 141 mmol/L (136-145); UREA NITROGEN, BLOOD 12 mg/dL (7-18)
[2021-07-21 17:35] LABS: GLOMERULAR FILTR. RATE CALC > 60 mL/min (>60)
[2021-07-21 17:40] LABS: ALANINE AMINOTRANSFERASE 14 U/L (12-78); ALBUMIN 3.2 g/dL (3.4-5.0); ALKALINE PHOSPHATASE 82 U/L (46-116); ASPARTATE AMINOTRANSFERASE 12 U/L (15-37); BILIRUBIN,TOTAL 0.5 mg/dL (0.1-1.0); TOTAL PROTEIN, SERUM 6.9 g/dL (6.4-8.2)
[2021-07-21] MEDS ORDERED: SODIUM CHLORIDE 0.9% 100 ML ONE (19:02)
[2021-07-21] MEDS ORDERED: IOHEXOL 350 MG/ML 100 ML VIAL ONE (19:02)
[2021-07-21 22:00] VITALS: BP 132/71
== END 2021-07-22 02:33 | disposition home or self-care (01) ==
LOC: EMS 15:12
DX: R11.2 Nausea with vomiting, unspecified (principal); F41.9 Anxiety disorder, unspecified; J45.909 Unspecified asthma, uncomplicated; F32.9 Major depressive disorder, single episode, unspecified; E11.9 Type 2 diabetes mellitus without complications; E78.00 Pure hypercholesterolemia, unspecified; I10 Essential (primary) hypertension; Z90.89 Acquired absence of other organs; Z79.899 Other long term (current) drug therapy
CPT/HCPCS: 71045; 74176; 80053; 84484; 85025; 93005; 96374; 99285; J2405; J7050; Q9967

== ENCOUNTER 2021-07-22 10:45 | Emergency (ER) | payer OTHER ==
[~2021-07-22] VITALS: Ht 167.6 cm; Wt 124.6 kg
[2021-07-22] MEDS ORDERED: ALBUTEROL SULFATE 2.5 MG/0.5 ML NEB SOLUTION NEB ONE (11:00)
[2021-07-22] MEDS ORDERED: MethylPREDNISolone SOD SUCC 125 MG/2 ML VIAL IVP ONE (11:00)
[2021-07-22] MEDS ORDERED: ONDANSETRON HCL 4 MG/2 ML VIAL IVP ONE (11:00)
[2021-07-22] MEDS ORDERED: IPRATROPIUM BROMIDE 0.5 MG/2.5 ML NEB SOLUTION NEB ONE (11:00)
[2021-07-22 11:17] LABS: BASOPHILS % (AUTO) 0.9 % (0.0-2.0); EOSINOPHILS % (AUTO) 0.5 % (1.0-6.0); HEMATOCRIT 39.4 % (36-46); HEMOGLOBIN 13.1 g/dL (12.0-16.0); LYMPHOCYTES # (AUTO) 2.2 K/uL (1.0-4.8); LYMPHOCYTES % (AUTO) 28.7 % (22.0-44.0); MEAN CORPUSCULAR HEMOGLOBIN 29.1 pg (26.0-34.0); MEAN CORPUSCULAR HGB CONC 33.2 G/dL (31.0-37.0); MEAN CORPUSCULAR VOLUME 88 fL (80-100); MONOCYTES # (AUTO) 0.6 K/uL (0.1-1.0); MONOCYTES % (AUTO) 7.9 % (2.0-9.0); NEUTROPHILS # (AUTO) 4.7 K/uL (1.8-7.7); PLATELET COUNT (AUTO) 183 K/uL (150-450); RED BLOOD CELL COUNT(AUTO) 4.51 MIL/uL (4.00-5.20); RED CELL DISTRIBUTION WIDTH 14.7 % (11.5-14.5)
[2021-07-22 11:27] LABS: CALCIUM, TOTAL 8.8 mg/dL (8.8-10.5); CREATININE 0.99 mg/dL (0.60-1.30); POTASSIUM 3.6 mmol/L (3.5-5.1)
[2021-07-22 11:34] LABS: ALBUMIN 3.3 g/dL (3.4-5.0); BILIRUBIN,TOTAL 0.5 mg/dL (0.1-1.0); TOTAL PROTEIN, SERUM 6.9 g/dL (6.4-8.2)
[2021-07-22 11:49] LABS: INFLUENZA TYPE A NEGATIVE FOR TYPE A (NEGATIVE); INFLUENZA TYPE B NEGATIVE FOR TYPE B (NEGATIVE)
[2021-07-22] MEDS ORDERED: CefTRIAXone 1 GM/DEXTROSE 50 ML IV ONE (12:45)
[2021-07-22] MEDS ORDERED: AZITHROMYCIN 500 MG/NS 250 ML IV ONE (12:45)
[2021-07-22 13:04] LABS: COVID AG,FIA SOURCE NASOPHARYNGEAL
[2021-07-22 13:53] VITALS: BP 160/104
== END 2021-07-22 18:49 | disposition short-term general hospital (02) ==
LOC: EMS 10:51
DX: J44.1 Chronic obstructive pulmonary disease with (acute) exacerbation (principal); J18.9 Pneumonia, unspecified organism; F41.9 Anxiety disorder, unspecified; J45.909 Unspecified asthma, uncomplicated; F32.9 Major depressive disorder, single episode, unspecified; E11.9 Type 2 diabetes mellitus without complications; E78.00 Pure hypercholesterolemia, unspecified; I10 Essential (primary) hypertension; Z20.822 Contact with and (suspected) exposure to COVID-19; Z90.89 Acquired absence of other organs
CPT/HCPCS: 71045; 80053; 82550; 83690; 83880; 84484; 85025; 87426; 87804; 93005; 94640; 96365; 96367; 96375; 99291; J0456; J0696; J2405; J2930; U0003; J7613

== ENCOUNTER 2021-10-01 12:48 | Emergency (ER) | payer OTHER ==
[~2021-10-01] VITALS: Ht 157.5 cm; Wt 125.0 kg
[~2021-10-01 12:48] MED LIST changes: -MELO-107 PO; +MELO-381 PO
[2021-10-01 15:25] LABS: BASOPHILS % (AUTO) 1.2 % (0.0-2.0); EOSINOPHILS % (AUTO) 3.9 % (1.0-6.0); HEMATOCRIT 40.9 % (36-46); HEMOGLOBIN 13.2 g/dL (12.0-16.0); LYMPHOCYTES # (AUTO) 2.2 K/uL (1.0-4.8); LYMPHOCYTES % (AUTO) 26.6 % (22.0-44.0); MEAN CORPUSCULAR HEMOGLOBIN 28.3 pg (26.0-34.0); MEAN CORPUSCULAR HGB CONC 32.4 G/dL (31.0-37.0); MEAN CORPUSCULAR VOLUME 87 fL (80-100); MONOCYTES # (AUTO) 0.7 K/uL (0.1-1.0); NEUTROPHILS # (AUTO) 4.9 K/uL (1.8-7.7); NEUTROPHILS % (AUTO) 59.3 % (40.0-70.0); PLATELET COUNT (AUTO) 245 K/uL (150-450); RED BLOOD CELL COUNT(AUTO) 4.68 MIL/uL (4.00-5.20); RED CELL DISTRIBUTION WIDTH 15.9 % (11.5-14.5)
[2021-10-01 15:33] LABS: CALCIUM, TOTAL 9.3 mg/dL (8.8-10.5); CREATININE 1.02 mg/dL (0.60-1.30); POTASSIUM 3.1 mmol/L (3.5-5.1)
[2021-10-01 15:39] LABS: ALBUMIN 3.1 g/dL (3.4-5.0); BILIRUBIN,TOTAL 0.3 mg/dL (0.1-1.0)
[2021-10-01 18:00] LABS: COVID AG,FIA SOURCE NASAL SWAB
[2021-10-02 01:26] VITALS: BP 134/69
== END 2021-10-02 01:29 | disposition short-term general hospital (02) ==
LOC: EMS 12:50
DX: R09.02 Hypoxemia (principal); I11.0 Hypertensive heart disease with heart failure; I50.9 Heart failure, unspecified; E11.9 Type 2 diabetes mellitus without complications; J45.909 Unspecified asthma, uncomplicated; J44.9 Chronic obstructive pulmonary disease, unspecified; F41.9 Anxiety disorder, unspecified; Z79.899 Other long term (current) drug therapy; Z20.822 Contact with and (suspected) exposure to COVID-19
CPT/HCPCS: 71045; 80053; 82962; 83880; 84484; 85025; 87040; 87077; 87205; 93005; 99285; 36415-L1; 36415-TC